=== PATIENT | male | born 1970 | race Caucasian/White ===

== ENCOUNTER → 2016-06-08 | Outpatient (CLI) | payer OTHER ==
--- NOTE | 2016-06-08 10:13 | DX ---
Bilateral Hands, Three Views Each 9:07 a.m. Clinical History: 45-year-old male with inflammatory arthritis. Assess for erosions and/or degenerati ve changes. ICD-10 Diagnostic Code: M06.4. Technique: Bilateral AP, oblique, and ball-catcher's views were obtained. Comparison Study: None. Findings: Bone mineralization is preserved. There is no marginal erosive change or osteophyte formati on. There is no joint space narrowing, subluxation, or soft tissue calcification. There is no fractur e, dislocation, or periostitis. Impression: Normal conventional radiographs of the hands.
== END ==
LOC: BRMIMAGING 09:00
PROVIDERS: ATTEND Internal Medicine
DX: M06.4 Inflammatory polyarthropathy (principal)
CPT/HCPCS: 73130-PO